=== PATIENT | female | born 1985 | race Two or more races ===

== ENCOUNTER 2017-07-22 16:12 | Emergency (ER) | payer OTHER ==
[2017-07-22] MEDS ORDERED: METOCLOPRAMIDE HCL ORAL SOLN 10 MG/10 ML UDCUP PO ONE (17:14)
[2017-07-22] MEDS ORDERED: MAG HYDROX/AL HYDROX/SIMETH SUSP 30 ML UDCUP PO ONE (17:14)
[2017-07-22] MEDS ORDERED: LIDOCAINE 2% VISCOUS SOLN 20 ML UDCUP PO ONE (17:14)
--- NOTE | 2017-07-22 17:14 | ER Document Report ---
ED General - General Chief Complaint: Allergic Reaction Stated Complaint: ABDOMINAL PAIN,NAUSEA,VOMITING Time Seen by Provider: 07/22/17 16:54 Notes: 31 yo female c/o epigastric pain x 1 day. pt reports she had a severe reaction to an ant bite yesterday. report having trouble breathing, throat closing, near syncopal. gave her 100mg Benadryl but did not seek medical attention. pt reports epigastric pain during the reaction, followed by vomiting. the vomiting has resolved, but the epigastric pain remains constant. pt saw her PCM today, was given steroids and and epi pen and was instructed to come to ED for further evaluation of her abdominal pain. denies fever TRAVEL OUTSIDE OF THE [place] IN LAST 30 DAYS: No - HPI Onset: Yesterday Onset/Duration: Sudden Quality of pain: Sharp Associated symptoms: Vomiting Exacerbated by: Denies Relieved by: Denies Similar symptoms previously: No Recently seen / treated by doctor: Yes - PCM today - Related Data Allergies/Adverse Reactions: Penicillins Allergy (Verified 07/22/17 16:34) Past Medical History - General Information source: Patient - Social History Smoking Status: Current Every Day Smoker Frequency of alcohol use: None Drug Abuse: None Lives with: Family Family History: Reviewed & Not Pertinent Patient has suicidal ideation: No Patient has homicidal ideation: No - Medical History Medical History: Negative Renal/ Medical History: Denies: Hx Peritoneal Dialysis Review of Systems - Review of Systems Constitutional: No symptoms reported EENT: No symptoms reported Cardiovascular: No symptoms reported Respiratory: No symptoms reported Gastrointestinal: No symptoms reported Genitourinary: No symptoms reported Female Genitourinary: No symptoms reported Musculoskeletal: No symptoms reported Skin: No symptoms reported Hematologic/Lymphatic: No symptoms reported Neurological/Psychological: No symptoms reported -: Yes All other systems reviewed and negative Physical Exam - Vital signs Vitals: Temp Pulse Resp BP Pulse Ox 98.6 F 80 18 101/68 99 07/22/17 16:34 07/22/17 16:34 07/22/17 16:34 07/22/17 16:34 07/22/17 16:34 Interpretation: Normal - General General appearance: Appears well, Alert In distress: None - HEENT Head: Normocephalic, Atraumatic Eyes: Normal Pupils: PERRL - Respiratory Respiratory status: No respiratory distress Chest status: Nontender Breath sounds: Normal Chest palpation: Normal - Cardiovascular Rhythm: Regular Heart sounds: Normal auscultation Murmur: No - Abdominal Inspection: Normal Distension: No distension Bowel sounds: Normal Tenderness: Tender. No: McBurney's point, Morris's sign, Guarding - epigastric area, Rebound Organomegaly: No organomegaly - Back Back: Normal, Nontender - Extremities General upper extremity: Normal inspection, Nontender, Normal color, Normal ROM , Normal temperature General lower extremity: Normal inspection, Nontender, Normal color, Normal ROM , Normal temperature, Normal weight bearing. No: Ashley's sign - Neurological Neuro grossly intact: Yes Cognition: Normal Orientation: AAOx4 Laz Coma Scale Eye Opening: Spontaneous Laz Coma Scale Verbal: Oriented Laz Coma Scale Motor: Obeys Commands [place] Coma Scale Total: 15 Speech: Normal Motor strength normal: LUE, RUE, LLE, RLE Sensory: Normal - Psychological Associated symptoms: Normal affect, Normal mood - Skin Skin Temperature: Warm Skin Moisture: Dry Skin Color: Normal Course - Re-evaluation Re-evalutation: 07/22/17 18:42 all labs are normal. results reviewed with patient. low suspicion for acute cholecystitis, bowel obstruction, perforated diverticulitis, pancreatitis. pt stable for discharge. instructed to return for any worsening. pt agreeable with plan - Vital Signs Vital signs: Temp Pulse Resp BP Pulse Ox 98.6 F 80 18 101/68 99 07/22/17 16:34 07/22/17 16:34 07/22/17 16:34 07/22/17 16:34 07/22/17 16:34 - Laboratory Result Diagrams: 07/22/17 17:30 07/22/17 17:30 Laboratory results interpreted by me: 07/22/17 17:30 Alkaline Phosphatase 32 L Discharge - Discharge Clinical Impression: Epigastric pain Condition: Stable Disposition: HOME, SELF-CARE Instructions: Abdominal Pain ([facility]) Additional Instructions: all your labs were normal today unclear cause of your abdominal pain please follow up with your primary care if your symptoms persist return to ER for any worsening
[2017-07-22 17:40] LABS: ABSOLUTE EOSINOPHILS # (AUTO) 0.1 10^3/uL (0.0-0.6); ABSOLUTE LYMPHOCYTES (AUTO) 2.3 10^3/uL (0.5-4.7); ABSOLUTE MONOCYTES (AUTO) 0.3 10^3/uL (0.1-1.4); ABSOLUTE NEUT (AUTO) 2.7 10^3/uL (1.7-8.2); BASOPHILS % (AUTO) 0.3 % (0-2); HEMATOCRIT 38.2 % (36.0-47.0); HEMOGLOBIN 13.3 g/dL (12.0-15.5); HGB HCT DIFFERENCE 1.7; LYMPHOCYTES % (AUTO) 41.9 % (13-45); MEAN CORPUSCULAR HEMOGLOBIN 32.4 pg (27.0-33.4); MEAN CORPUSCULAR HGB CONC 34.8 g/dL (32.0-36.0); MEAN CORPUSCULAR VOLUME 93 fl (80-97); MONOCYTES % (AUTO) 6.2 % (3-13); RED CELL DISTRIBUTION WIDTH 12.3 % (11.5-14.0); SEGMENTED NEUTROPHILS % (AUTO) 49.6 % (42-78); WHITE BLOOD COUNT 5.5 10^3/uL (4.0-10.5)
[2017-07-22 17:46] LABS: APPEARANCE,URINE CLEAR; BILIRUBIN,URINE NEGATIVE (NEGATIVE); GLUCOSE, URINE NEGATIVE (NEGATIVE); KETONES,URINE NEGATIVE (NEGATIVE); LEUKOCYTE ESTERASE,URINE NEGATIVE (NEGATIVE); NITRITE,URINE NEGATIVE (NEGATIVE); PROTEIN,URINE NEGATIVE (NEGATIVE); URINE SPECIFIC GRAVITY 1.004; UROBILINOGEN,URINE NEGATIVE mg/dL (<2.0)
[2017-07-22 17:55] LABS: ALANINE AMINOTRANSFERASE 26 U/L (9-52); ALBUMIN 4.2 g/dL (3.5-5.0); ALKALINE PHOSPHATASE 32 U/L (38-126); ANION GAP 12 (5-19); ASPARTATE AMINO TRANSFERASE 14 U/L (14-36); BILIRUBIN,DIRECT 0.3 mg/dL (0.0-0.4); BILIRUBIN,TOTAL 0.6 mg/dL (0.2-1.3); BLOOD UREA NITROGEN 9 mg/dL (7-20); CALCIUM 9.3 mg/dL (8.4-10.2); CARBON DIOXIDE 22 mmol/L (22-30); CHLORIDE 107 mmol/L (98-107); GLUCOSE 83 mg/dL (75-110); POTASSIUM 3.8 mmol/L (3.6-5.0); SODIUM 141.2 mmol/L (137-145); TOTAL PROTEIN 6.9 g/dL (6.3-8.2)
[2017-07-22 19:07] VITALS: BP 103/62
== END 2017-07-22 19:07 | disposition home or self-care (01) ==
LOC: ER 16:12
DX: R10.13 Epigastric pain (principal); T78.40XA Allergy, unspecified, initial encounter; R10.9 Unspecified abdominal pain; R11.2 Nausea with vomiting, unspecified; X58.XXXA Exposure to other specified factors, initial encounter; F17.200 Nicotine dependence, unspecified, uncomplicated
CPT/HCPCS: 99283; 36415; 83690; 85025; 80053; 81001; J3490

== ENCOUNTER 2018-07-08 16:50 | Emergency (ER) | payer OTHER ==
[2018-07-08] MEDS ORDERED: FAMOTIDINE INJ/PF 20 MG/2 ML SDV IV ONE (16:55)
[2018-07-08] MEDS ORDERED: NORMAL SALINE 1000 ML 1,000 ML IV ONE ×2 (16:55)
[2018-07-08] MEDS ORDERED: DIPHENHYDRAMINE HCL 50 MG/ML VIAL IV ONE (16:55)
[2018-07-08] MEDS ORDERED: METHYLPREDNISOLONE INJ 125 MG/2 ML SDV IV ONE (16:55)
--- NOTE | 2018-07-08 16:57 | ER Document Report ---
ED Medical Screen (RME) - General Chief Complaint: Allergic Reaction Stated Complaint: POSSIBLE ALLERGIC REACTION Time Seen by Provider: 07/08/18 16:51 TRAVEL OUTSIDE OF THE [place] IN LAST 30 DAYS: No - HPI Notes: 07/08/18 16:56 Allergic reaction with fire ant bites to 50 mg of Benadryl p.o. prior to arrival - Related Data Allergies/Adverse Reactions: Penicillins Allergy (Verified 07/08/18 16:52) Past Medical History Pulmonary Medical History: Reports: Hx Tuberculosis Renal/ Medical History: Denies: Hx Peritoneal Dialysis - Immunizations Hx Diphtheria, Pertussis, Tetanus Vaccination: Yes Review of Systems - Review of Systems Constitutional: Other - Allergic reaction Physical Exam - Vital signs Vitals: Temp Pulse Resp BP Pulse Ox 99.1 F 152 H 18 137/88 H 100 07/08/18 16:53 07/08/18 16:53 07/08/18 16:53 07/08/18 16:53 07/08/18 16:53 - General Notes: Diffuse hives in the lower extremities and on the abdomen. Airway patent no uvula edema patient talking without distress Course - Vital Signs Vital signs: Temp Pulse Resp BP Pulse Ox 99.1 F 152 H 18 137/88 H 100 07/08/18 16:53 07/08/18 16:53 07/08/18 16:53 07/08/18 16:53 07/08/18 16:53
[2018-07-08] MEDS ORDERED: ALBUTEROL SULFATE 0.083% NEB 2.5 MG/3 ML AMPUL NEB ONE (17:04)
--- NOTE | 2018-07-08 17:05 | ER Document Report ---
ED Allergic Reaction - General Chief Complaint: Allergic Reaction Stated Complaint: POSSIBLE ALLERGIC REACTION Time Seen by Provider: 07/08/18 16:51 Mode of Arrival: Ambulatory Information source: Patient TRAVEL OUTSIDE OF THE [place] 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 and has similar reactions in the past, patient reports difficulty breathing, she is not having any difficulty swallowing or the sensation of her airway closing, she does have an EpiPen at home and states that she knew she was not at the point where she needed to use it, however she did take Benadryl prior to coming to the department - Related Data Allergies/Adverse Reactions: Penicillins Allergy (Verified 07/08/18 16:52) Past Medical History - General Information source: Patient - Social History Smoking Status: Unknown if Ever Smoked Family History: Reviewed & Not Pertinent Pulmonary Medical History: Reports: Hx Tuberculosis Renal/ Medical History: Denies: Hx Peritoneal Dialysis - Immunizations Hx Diphtheria, Pertussis, Tetanus Vaccination: Yes Review of Systems - Review of Systems Constitutional: No symptoms reported EENT: No symptoms reported Cardiovascular: No symptoms reported Respiratory: See HPI Gastrointestinal: No symptoms reported Genitourinary: No symptoms reported Female Genitourinary: No symptoms reported Musculoskeletal: No symptoms reported Skin: See HPI Hematologic/Lymphatic: No symptoms reported Neurological/Psychological: No symptoms reported -: Yes All other systems reviewed and negative Physical Exam - Vital signs Vitals: Temp Pulse Resp BP Pulse Ox 99.1 F 152 H 18 137/88 H 100 07/08/18 16:53 07/08/18 16:53 07/08/18 16:53 07/08/18 16:53 07/08/18 16:53 Interpretation: Normal - General General appearance: Appears well, Alert - HEENT Head: Normocephalic, Atraumatic Eyes: Normal, Periorbital edema - mild Conjunctiva: Normal Extraocular movements intact: Yes Eyelashes: Normal Pupils: PERRL Pharynx: Normal. No: Uvular edema Neck: Normal - Respiratory Respiratory status: No respiratory distress Chest status: Nontender Breath sounds: Wheezing Chest palpation: Normal - Cardiovascular Rhythm: Regular Heart sounds: Normal auscultation Murmur: No - Abdominal Inspection: Normal Distension: No distension Bowel sounds: Normal Tenderness: Nontender Organomegaly: No organomegaly - Back Back: Normal, Nontender - Extremities General upper extremity: Normal inspection, Nontender, Normal color, Normal ROM , Normal temperature General lower extremity: Normal inspection, Nontender, Normal color, Normal ROM , Normal temperature, Normal weight bearing. No: Ashley's sign - Neurological Neuro grossly intact: Yes Cognition: Normal Orientation: AAOx4 [place] Coma Scale Eye Opening: Spontaneous [place] Coma Scale Verbal: Oriented Laz Coma Scale Motor: Obeys Commands [place] Coma Scale Total: 15 Speech: Normal Motor strength normal: LUE, RUE, LLE, RLE Sensory: Normal - Psychological Associated symptoms: Normal affect, Normal mood - Skin Skin Temperature: Warm Skin Moisture: Dry Character of irregularity: Erythematous - Diffuse, Urticarial Course - Re-evaluation Re-evalutation: 07/08/18 18:22 After receiving IV fluids and medications patient is feeling much better, her urticarial rash is significantly improved as well as upper eyelid edema, lungs are clear to auscultation, she will be discharged with several prescriptions and instructions for follow-up, advised to return if symptoms worsen, patient acknowledges understanding and agreement with this plan - Vital Signs Vital signs: Temp Pulse Resp BP Pulse Ox 99.1 F 152 H 18 137/88 H 100 07/08/18 16:53 07/08/18 16:53 07/08/18 16:53 07/08/18 16:53 07/08/18 16:53 Discharge - Discharge Clinical Impression: Urticarial rash Allergic reaction Qualifiers: Encounter type: initial encounter Qualified Code(s): T78.40XA - Allergy, unspecified, initial encounter Condition: Stable Disposition: HOME, SELF-CARE Instructions: Acute Urticaria ([facility]), Acute Allergic Reaction ([facility]), Insect Bites ([facility]) Additional Instructions: Follow up with your primary care provider in one to 2 days. Return to the emergency room immediately if symptoms worsen or any additional concerns. Prescriptions: Famotidine [Pepcid 20 mg Tablet] 20 mg PO BID #12 tablet Prednisone 40 mg PO DAILY #8 tablet
[2018-07-08 18:32] VITALS: BP 106/64
== END 2018-07-08 18:32 | disposition home or self-care (01) ==
LOC: ER 16:50
DX: T63.421A Toxic effect of venom of ants, accidental (unintentional), initial encounter (principal); L50.9 Urticaria, unspecified; R06.2 Wheezing; Z88.0 Allergy status to penicillin
CPT/HCPCS: 99283